=== PATIENT | female | born 1980 | race Caucasian/White ===

== ENCOUNTER 2024-10-24 15:02 | Emergency (ER) | payer OTHER ==
[2024-10-24 15:19] VITALS: BP 133/87; PULSE 87; RESP 18; TEMP 99.1; BMI 26.1
[2024-10-24] MEDS ORDERED: METOCLOPRAMIDE HCL INJECTION 10 MG/2 ML VIAL ONE (16:13)
[2024-10-24] MEDS: SODIUM CHLORIDE 1,000 ML IV STA (16:17)
[2024-10-24] MEDS: METOCLOPRAMIDE HCL INJECTION 10 MG/2 ML VIAL IVPUSH ONE (16:18)
== END 2024-10-24 17:03 | disposition home or self-care (01) ==
LOC: JER 15:02
PROC: 3E033GC Introduction of Other Therapeutic Substance into Peripheral Vein, Percutaneous Approach (ICD-10-PCS; principal; 2024-10-24)
PROC: 3E0337Z Introduction of Electrolytic and Water Balance Substance into Peripheral Vein, Percutaneous Approach (ICD-10-PCS; 2024-10-24)
DX: R51.9 Headache, unspecified (principal); H92.01 Otalgia, right ear
CPT/HCPCS: 99284-25